=== PATIENT | male | born 1960 | race Caucasian/White ===

== ENCOUNTER 2017-05-09 17:12 | Emergency (ER) | payer OTHER ==
[~2017-05-09] VITALS: Ht 182.9 cm; Wt 124.0 kg
[2017-05-09 18:01] LABS: HEMATOCRIT 47.3 % (38.0-50.0); MCH 31.2 PG (29.0-34.0); MCHC 34.5 G/DL (30.0-36.0); MCV 90.6 FL (86-99); MEAN PLAT.VOLUME 9.4 uM^3 (9.0-12.4); PLATELET COUNT 192 K/uL (156-360); RBC DIS.WIDTH-CV 12.5 % (11.8-14.6); RBC DIS.WIDTH-SD 41.6 % (39-53); RED BLOOD COUNT 5.22 M/uL (4.00-5.50); WHITE BLOOD COUNT 7.8 K/uL (4.1-10.2)
[2017-05-09 18:10] LABS: CHLORIDE 106 mEq/L (99-109); POTASSIUM 4.4 mEq/L (3.7-5.4); SODIUM 140 mEq/L (136-147)
[2017-05-09 18:12] LABS: GLUCOSE 131 mg/dL (70-99)
[2017-05-09 18:13] LABS: ANION GAP 11 MEQ/L (2-14)
[2017-05-09 18:15] LABS: GFR ESTIMATE (CALCULATED) 56 mL/min/
[2017-05-09 18:16] LABS: UREA NITROGEN (BUN) 23 mg/dL (9-23)
[2017-05-09 18:21] LABS: TROP-I INTERPRETATION NEGATIVE; TROPONIN-I < 0.01 ng/mL (0.0-0.30)
[2017-05-09 19:33] LABS: D-DIMER ELISA < 150.00 ng/mLDDU (<230)
[2017-05-09 21:15] LABS: TROP-I INTERPRETATION NEGATIVE; TROPONIN-I 0.01 ng/mL (0.0-0.30)
[2017-05-09 21:37] VITALS: BP 170/93
== END 2017-05-09 21:38 | disposition home or self-care (01) ==
LOC: EME 17:12
PROVIDERS: Emergency Medicine
DX: R07.89 Other chest pain (principal); Z82.49 Family history of ischemic heart disease and other diseases of the circulatory system
CPT/HCPCS: 71020; 80048; 84484; 85027; 85379; 86618; 93005; 99281; 99284